=== PATIENT | male | born 1995 | race Caucasian/White ===

== ENCOUNTER 2022-11-28 14:27 | Emergency (ER) | payer BC ==
[2022-11-28] MEDS ORDERED: Lidocaine 1% (PF) 30 ML VIAL ONE (14:59)
[2022-11-28] MEDS ORDERED: Boostrix 0.5 ML (Tdap) VIAL (>/=7 yrs of age) ONE (15:00)
[2022-11-28] MEDS ORDERED: Bacitracin 1 PK ONE (15:34)
== END 2022-11-28 16:00 | disposition home or self-care (01) ==
LOC: ERS 14:27
DX: S61.213A Laceration without foreign body of left middle finger without damage to nail, initial encounter (principal); W26.0XXA Contact with knife, initial encounter
CPT/HCPCS: 12001; 90471; 90715; J2001

== ENCOUNTER 2022-12-12 15:26 | Emergency (ER) | payer BC | END 2022-12-12 15:50 | disposition home or self-care (01) | LOC: ERS 15:26 | DX: S61.211D Laceration without foreign body of left index finger without damage to nail, subsequent encounter (principal); W26.9XXD Contact with unspecified sharp object(s), subsequent encounter ==